=== PATIENT | male | born 1980 | race Caucasian/White ===

== ENCOUNTER 2017-02-01 12:43 | Emergency (ER) | payer OTHER ==
[~2017-02-01 12:43] MED LIST: CHOL100043; CLON1TAB PO; HYDR-4003; IBUP-1827 PO; MIRT45TA5 PO; NICO1PAT6; VENL150C PO
[2017-02-01 12:44] VITALS: BP 134/84; PULSE 53; RESP 16; O2SAT 99
--- NOTE | 2017-02-01 12:52 | ED.REPORT ---
HPI-Extremity Problem Upper Date of Service Feb 01, 2017 ED Provider: Robel Huitron MD Patient is a 36 year old male who presents to the ED complaining of a laceration on his L hand last night at 2200. He broke a cell phone and the glass from the screen cut between the web space of this thumb and index finger. He denies numbness, fever, or any other symptoms. Nursing Notes Stated Complaint: CUT ON LEFT HAND Chief Complaint: Extremity Trauma Nursing Notes Reviewed: Yes Allergies: Coded Allergies: No Known Allergies (Verified Allergy, Unknown, 02/01/17) Scheduled Mirtazapine (Mirtazapine) 45 Mg Tablet 45 MG PO HS Venlafaxine ER (Effexor XR) 150 Mg Capsule 225 MG PO DAILY Scheduled PRN Clonazepam (Klonopin) 1 Mg Tablet 1 MG PO Q4 PRN PRN For Anxiety Ibuprofen (Ibuprofen) 600 Mg Tablet 600 MG PO QID PRN PRN For Pain Miscellaneous Medications Cholecalciferol (Vitamin D3) (Vitamin D) 1,000 Unit Tablet 1,000 Hydrocodone-Acetaminophen 5-325 mg (Hydrocodone-Acetaminophen 5-325 mg) 1 Each Tablet 2 Nicotine 21 mg/24 hr Patch (Nicotine 21 mg/24 hr Patch) 1 Each Patch.td24 21 General Time Seen by MD: 12:48 Chief Complaint Hand Injury left Hx Obtained From: Patient Arrived By: Walk-in Onset Occurred: 13 - 16 hours ago Immunizations: Unknown Past Medical History Past Medical History Notes: [facility]: Dr. Gale Psychiatrist. Counselor Several voluntary and involuntary admits to [facility], [place], and [facility] Recent admit to [facility] on 12/21/2015 following a suicide attempt. Additional dx of traumatic rhabdomyolysis. Past Medical History AXIS I Major depressive disorder, severe, recurrent, without psychotic features. Rule out bipolar disorder, not otherwise specified. Anxiety disorder, not otherwise specified vs. Generalized Anxiety Diorder vs. Panic Disorder without agoraphobia. History of Alcohol Dependence AXIS II Borderline personality disorder, by history. AXIS III Chronic neck and back pain. AXIS IV Psychosocial stressors include separation from spouse and limited visitation with children. Past Surgical History None Family History Noncontributory Smoking History Current Every Day Smoker Social History The patient lives in [place]. He came to [facility] because he feels he receives better care here. Alcohol Use: Denies alcohol use Drug Use: Other Other Social History: Good social support, Local resident Occupation [employer] in [place] Ambulatory Status Independent Review of Systems Review of Systems Note: +laceration L hand Constitutional: Denies: Fever Neurologic: Denies: Numbness Complete sys rev & neg: except as marked. Physical Exam Initial Vital Signs Vital Signs (First) Date Time Temp Pulse Resp B/P Pulse Ox O2 Delivery O2 Flow Rate FiO2 02/01/17 12:44 36.4 53 16 134/84 99 Room Air Initial VS: Reviewed, Vital signs normal General/Constitutional: Well-developed, Well-nourished Head / Eyes: Atraumatic, Normocephalic Neck: Full range of motion Respiratory: Breath sounds normal, Clear to auscultation, No respiratory distress Cardiovascular: Regular rate & rhythm, Heart sounds normal, Intact distal pulses Neurologic: Alert, Oriented, Nonfocal Psychiatric: Mood/affect normal, Behavior normal, Normal thought content Wrist / Hand: Neurologic intact, Vascular intact, No ligamentous injury, Tendon function NL Good cap refill Skin: Warm, Dry Rash / Lesion Notes: In intertriginous space of L first and 2nd finger there is a superficial laceration measurign 2 cm that is not extending to subcutaneous tissue. no foreign body or bleeding. Re-Eval/Medical Decision Med Decision/Clinical Course Patient is a 36 year old male who presents to the ED complaining of a laceration on his L hand last night at 2200. He broke a cell phone and the glass from the screen cut between the web space of this thumb and index finger. He denies numbness, fever, or any other symptoms. Examination reveals that the wound is very superficial and does not extend beyond the cutaneous layer. There is no foreign body present. There is no ligamentous or neurovascular injury present. There is no evidence of infection. He is neurovascularly intact to the fingertips. The wound does not require sutures and given the age of the wound I do not feel that sutures would be indicated anyways. The wound was copiously irrigated and cleaned. Bacitracin and dressings were placed. He is advised to watch for any signs of infection and follow up with his primary care doctor. Prior to discharge follow-up and return precautions were reviewed in detail with the patient who verbalized understanding and agreement with the plan. The patient was discharged in stable condition. Re-Evaluation/Progress : Time of Eval: 13:08 Re-Evaluation/Progress Note: Discussed plan for discharge. Patient understands and agrees with plan. All questions addressed at this time. Counseled Regarding: Diagnosis, Need for follow-up, When/why to return to ED Discharge & Departure Impression: Primary Impression: Laceration Additional Impressions: Laceration of left hand Encounter type: initial encounter Foreign body presence: without foreign body Qualified Code: S61.412A - Laceration without foreign body of left hand, initial encounter Left hand pain Disposition: Home Discharge Condition All VS Reviewed: Yes Condition: Stable Additional Instructions: Thank you for entrusting us with your care. Our primary goal today in the ED was to evaluate you for any life-threatening conditions. Your evaluation was reassuring. Keep the wound covered with bacitracin and a sterile dressing. You should follow-up with your primary doctor in the next week to ensure proper healing. Return to the emergency department if your experience fever, chills, redness, warmth, swelling, or any other new or worsening symptoms. Referrals: Pb Richmond MD (PCP) Scribe Attestation Portions of this note were transcribed by Aquiles Moore. I, Dr. Huitron personally performed the history, physical exam and medical decision-making; I reviewed and confirmed the accuracy of the information in the transcribed note. Signed by: Aquiles Moore 02/01/17, 1310 copies to: Pb Richmond MD, Beck O MD Feb 01, 2017 12:52 AQUILES MOORE Feb 01, 2017 13:05
[2017-02-01] MEDS ORDERED: TdaP Vaccine 0.5 mL Inj IM ONE (13:05)
[2017-02-01] MEDS ORDERED: DTaP Vaccine 0.5 mL Inj IM ONE (14:00)
[2017-02-01 14:09] VITALS: BP 118/81; PULSE 80; RESP 18; O2SAT 95
== END 2017-02-01 14:13 | disposition home or self-care (01) ==
LOC: SED 12:43
DX: S61.412A Laceration without foreign body of left hand, initial encounter (principal); W25.XXXA Contact with sharp glass, initial encounter; Y93.89 Activity, other specified; Y92.89 Other specified places as the place of occurrence of the external cause; Y99.8 Other external cause status; F17.200 Nicotine dependence, unspecified, uncomplicated; Z23 Encounter for immunization

== ENCOUNTER 2017-03-30 03:21 | Emergency (ER) | payer SELFPAY ==
[2017-03-30 03:26] VITALS: BP 143/93; PULSE 79; RESP 16; O2SAT 100
--- NOTE | 2017-03-30 03:44 | ED.REPORT ---
HPI- Male Date of Service Mar 30, 2017 ED Provider: Venancio Do MD Pt is a 36 year old male presenting to the ED complaining of penile pain and bruising onset 2 weeks ago during sexual intercourse. He denies any hard impact , but states that when they switched positions and he went to insert the penis, it "buckled" and turned black and blue. He has not had an erection since the injury. Denies fever, chills, nausea, vomiting, SOB or wheezing. Nursing Notes Stated Complaint: GENITAL PAIN/BRUISING Chief Complaint: General Complaint Nursing Notes Reviewed: Yes Allergies: Coded Allergies: No Known Allergies (Verified Allergy, Unknown, 02/01/17) Scheduled Mirtazapine (Mirtazapine) 45 Mg Tablet 45 MG PO HS Venlafaxine ER (Effexor XR) 150 Mg Capsule 225 MG PO DAILY Scheduled PRN Clonazepam (Klonopin) 1 Mg Tablet 1 MG PO Q4 PRN PRN For Anxiety Ibuprofen (Ibuprofen) 600 Mg Tablet 600 MG PO QID PRN PRN For Pain Miscellaneous Medications Cholecalciferol (Vitamin D3) (Vitamin D) 1,000 Unit Tablet 1,000 Hydrocodone-Acetaminophen 5-325 mg (Hydrocodone-Acetaminophen 5-325 mg) 1 Each Tablet 2 Nicotine 21 mg/24 hr Patch (Nicotine 21 mg/24 hr Patch) 1 Each Patch.td24 21 General Time Seen by MD: 03:31 Chief Complaint Other (Penile pain and bruising) Hx Obtained From: Patient Arrived By: Walk-in Onset Occurred: More than a week ago... (2 weeks) Symptom Duration: Since onset Location: : Penis Quality: Painful Severity: Current: Moderate Severity: Maximum: Severe Recent Healthcare: No recent doctor visit, No recent hospitalization Similar Sx Previous: No Past Medical History Past Medical History Notes: [facility]: Dr. Gale Psychiatrist. Counselor Several voluntary and involuntary admits to [facility], [place], and [facility] Recent admit to [facility] on 12/21/2015 following a suicide attempt. Additional dx of traumatic rhabdomyolysis. Past Medical History AXIS I Major depressive disorder, severe, recurrent, without psychotic features. Rule out bipolar disorder, not otherwise specified. Anxiety disorder, not otherwise specified vs. Generalized Anxiety Diorder vs. Panic Disorder without agoraphobia. History of Alcohol Dependence AXIS II Borderline personality disorder, by history. AXIS III Chronic neck and back pain. AXIS IV Psychosocial stressors include separation from spouse and limited visitation with children. Past Surgical History None Family History Noncontributory Smoking History Current Every Day Smoker Social History The patient lives in [place]. He came to [facility] because he feels he receives better care here. Alcohol Use: Denies alcohol use Drug Use: Other Other Social History: Good social support, Local resident Occupation [employer] in [place] Ambulatory Status Independent Review of Systems Review of Systems Note: Penile pain and bruising Constitutional: Denies: Chills, Fever GI: Denies: Nausea, Vomiting Complete sys rev & neg: except as marked. Respiratory: Denies: Shortness of breath, Wheezing Physical Exam Initial Vital Signs Vital Signs (First) Date Time Temp Pulse Resp B/P Pulse Ox O2 Delivery O2 Flow Rate FiO2 03/30/17 03:26 36.7 79 16 143/93 100 Room Air Initial VS: Reviewed, Vital signs abnormal General/Constitutional: Well-developed, Well-nourished Head / Eyes: Atraumatic, Normocephalic, PERRL ENT: Mucous membranes moist, Conjunctiva normal, No scleral icterus Neck: Supple, Non-tender, Full range of motion Respiratory: Breath sounds normal, Clear to auscultation, No respiratory distress Cardiovascular: Regular rate & rhythm, Heart sounds normal, Intact distal pulses Abdomen / GI: Soft, Non-tender, No guarding, No rebound, No distention Extremities: Vascular intact, Neuro intact, No swelling, No tenderness Skin: Warm, Dry, No cyanosis Neurologic: Alert, Oriented, Nonfocal Psychiatric: Mood/affect normal, Behavior normal, Normal thought content Male Genitourinary: No lesions or rash Right side of penis ecchymotic indurated area Re-Eval/Medical Decision Med Decision/Clinical Course Late presentation of a possible penile fracture. Case was discussed with Dr. Lugo who suggested anti-inflammatories and clinic follow-up Re-Evaluation/Progress : Time of Eval: 04:24 Patient Status: Condition improved Re-Evaluation/Progress Note: Discussed consultation with Dr. Lugo and plan for discharge and follow up in the clinic. Pt understands and agrees. All pt questions addressed. Consultation : Referral / Consult Name: Tommy Lugo MD Consulted With: Urology Call Returned at: 04:10 X Ray Physician: Will see in office, Agrees with eval Counseled Regarding: Diagnosis, Lab results, Need for follow-up, When/why to return to ED Discharge & Departure Impression: Primary Impression: Penile fracture Encounter type: initial encounter Qualified Code: S39.840A - Fracture of corpus cavernosum penis, initial encounter Disposition: Home Discharge Condition All VS Reviewed: Yes Condition: Improved Additional Instructions: Blunt trauma to the penis, possible penile fracture. For now, do not attempt to get an erection. Ibuprofen 400-600 mg 3 or 4 times daily to help reduce inflammation. Cool compresses. Follow up with Dr. Lugo for further evaluation and treatment. Referrals: NOPCP (PCP) Tommy Lugo MD Attestation Portions of this note were transcribed by Cathie Sanchez. I, Dr. Do personally performed the history, physical exam and medical decision-making; I reviewed and confirmed the accuracy of the information in the transcribed note. Signed by: Yuko Starks, 03/30/2017. copies to: Tommy Lugo MD, Howard L MD Mar 30, 2017 03:44 CATHIE SANCHEZ Mar 30, 2017 03:54
[2017-03-30 04:51] VITALS: BP 121/77; PULSE 74; RESP 18; O2SAT 97
== END 2017-03-30 04:54 | disposition home or self-care (01) ==
LOC: SED 03:21
DX: S39.840A Fracture of corpus cavernosum penis, initial encounter (principal); X58.XXXA Exposure to other specified factors, initial encounter; Y93.89 Activity, other specified; Y92.89 Other specified places as the place of occurrence of the external cause; Y99.8 Other external cause status; F17.200 Nicotine dependence, unspecified, uncomplicated